=== PATIENT | male | born 1935 ===

== ENCOUNTER 2018-09-17 20:45 | Emergency (ER) | payer MEDICARE ==
--- NOTE | 2018-09-17 21:25 | C.PDOC ---
History Of Present Illness Patient is a 82 year old male who is sent into the ED by his PMD for high potassium after he was seen today for a routine check up. Patient denies any fever, chills, nausea, vomiting, abdominal pain, CP, or SOB. Time Seen by Provider: 09/17/18 21:24 Chief Complaint (Nursing): Abnormal Labs History Per: Patient History/Exam Limitations: no limitations Current Symptoms Are (Timing): Still Present Severity: None Reports Recently: Seen In ED, Treated By A Physician Recent travel outside of the [place]: No Additional History Per: Patient Past Medical History Reviewed: Historical Data, Nursing Documentation, Vital Signs Vital Signs: Last Vital Signs Temp 98.2 F 09/17/18 20:47 Pulse 71 09/17/18 20:47 Resp 20 09/17/18 20:47 BP 150/78 09/17/18 20:47 Pulse Ox 100 09/17/18 20:47 - Medical History PMH: HTN, Hypercholesterolemia Surgical History: No Surg Hx Family History: States: No Known Family Hx - Social History Hx Alcohol Use: No Hx Substance Use: No - Immunization History Hx Tetanus Toxoid Vaccination: No Hx Influenza Vaccination: No Hx Pneumococcal Vaccination: No Review Of Systems Constitutional: Negative for: Fever, Chills Cardiovascular: Negative for: Chest Pain Respiratory: Negative for: Shortness of Breath Gastrointestinal: Negative for: Nausea, Vomiting, Abdominal Pain Musculoskeletal: Negative for: Back Pain Skin: Negative for: Rash Neurological: Negative for: Weakness Psych: Negative for: Anxiety Physical Exam - Physical Exam Appears: Non-toxic, No Acute Distress Skin: Warm, Dry Head: Normacephalic Eye(s): bilateral: Normal Inspection Oral Mucosa: Moist Neck: Trachea Midline, Supple Chest: Symmetrical, Other (pacemaker on right side ) Cardiovascular: Rhythm Regular Respiratory: No Rales, No Rhonchi, No Wheezing Gastrointestinal/Abdominal: Soft, No Tenderness, No Distention Back: Normal Inspection Extremity: No Pedal Edema Extremity: Bilateral: Atraumatic, Normal Color And Temperature, Normal ROM Pulses: Left Dorsalis Pedis: Normal, Right Dorsalis Pedis: Normal Neurological/Psych: Oriented x3 Gait: Steady ED Course And Treatment - Laboratory Results Result Diagrams: 09/17/18 22:10 09/17/18 22:10 ECG: Interpreted By Me, Viewed By Me ECG Rhythm: Sinus Rhythm (60), R BBB, Nonspecific Changes (atrial paced) O2 Sat by Pulse Oximetry: 100 (on RA) Pulse Ox Interpretation: Normal - Radiology CXR: Interpreted by Me, Viewed By Me CXR Interpretation: Yes: Other (pacer right). No: Infiltrates, Fracture, Pnemothorax Progress Note: Plan: EKG. Labs. CXR Reevaluation Time: 23:03 Reassessment Condition: Improved Medical Decision Making Medical Decision Making: Upon provider reevaluation patient is feeling better, is medically stable, and requires no further treatment in the ED at this time. Patient will be discharged home . Counseling was provided and all questions were answered regarding diagnosis and need for follow up with dr chester trinh. There is agreement to discharge plan. Return if symptoms persist or worsen. Disposition Counseled Patient/Family Regarding: Studies Performed, Diagnosis, Need For Followup - Disposition Referrals: Christian Trinh MD [Medical Doctor] - Disposition: HOME/ ROUTINE Disposition Time: 21:25 Condition: FAIR Additional Instructions: Please return if symptoms recur Instructions: Hyperkalemia (DC) Forms: [employer] (Macedonian) Print Language: MOROCCAN - Clinical Impression Clinical Impression: Hyperkalemia - Scribe Statement The provider has reviewed the documentation as recorded by the Coltenibjeannine Wilson All medical record entries made by the Scribe were at my direction and personally dictated by me. I have reviewed the chart and agree that the record accurately reflects my personal performance of the history, physical exam, medical decision making, and the department course for this patient. I have also personally directed, reviewed, and agree with the discharge instructions and disposition.
[2018-09-17 22:22] LABS: BASO % 0.7 % (0.0-2.0); EOS # 1.5 K/uL (0.0-0.7); EOS % 23.9 % (0.0-4.0); HEMOGLOBIN 9.7 g/dL (12.0-18.0); LYMPH # 1.7 K/uL (1.0-4.3); MEAN CELL VOLUME 87.7 fL (80.0-94.0); MEAN CORPUSCULAR HEMOGLOBIN 27.9 pg (27.0-31.0); MEAN CORPUSCULAR HGB CONC 31.8 g/dL (33.0-37.0); MEAN PLATELET VOLUME 8.6 fL (7.2-11.7); MONO # 0.4 K/uL (0.0-0.8); MONO % 5.8 % (0.0-10.0); NEUT # 2.8 K/uL (1.8-7.0); NEUT % 43.6 % (50.0-75.0); NRBC % 0.1 % (0.0-2.0); PLATELET COUNT 195 K/uL (130-400); RBC 3.46 Mil/uL (4.40-5.90); RED CELL DISTRIBUTION WIDTH 15.7 % (11.5-14.5); WHITE BLOOD COUNT 6.4 K/uL (4.8-10.8)
[2018-09-17 22:35] LABS: ALB/GLOB RATIO 1.4 (1.0-2.1); ALBUMIN 4.7 g/dL (3.5-5.0); CALCIUM 9.4 mg/dl (8.6-10.4)
[2018-09-17 23:25] VITALS: BP 137/82; PULSE 89; RESP 17; TEMP 98.6; O2SAT 99
[2018-09-17 23:27] LABS: BANDS 1 % (0-2); BASOPHIL 1 % (0-2); EOSINOPHIL 27 % (0-4); LYMPHOCYTE 21 % (20-40); MONOCYTE 5 % (0-10); NEUTROPHIL 44 % (50-75); PLATELET ESTIMATE NORMAL (NORMAL); REACTIVE LYMPHOCYTES 1 % (0-0); TOTAL CELLS COUNTED 100
--- NOTE | 2018-09-18 09:27 | RAD ---
Date of service: 09/17/2018 HISTORY: SOB COMPARISON: None available. FINDINGS: LUNGS: No active pulmonary disease. PLEURA: No significant pleural effusion identified, no pneumothorax apparent. CARDIOVASCULAR: Calcific atherosclerotic changes are seen related to the thoracic aorta. 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 Normal cardiac size. No pulmonary vascular congestion. OSSEOUS STRUCTURES: No significant abnormalities. VISUALIZED UPPER ABDOMEN: Normal. OTHER FINDINGS: None. IMPRESSION: No acute cardiopulmonary disease. Permanent cardiac pacemaker identified as discussed above.
--- NOTE | 2018-09-19 16:07 | CARD ---
APPROVED REPORT Date of service: 09/17/2018 EKG Measurement Heart [id number] <Conclusion> Atrial-paced rhythm Right bundle branch block Abnormal ECG
== END 2018-09-17 23:25 | disposition home or self-care (01) ==
LOC: C.ER 20:45
DX: E87.5 Hyperkalemia (principal); E78.00 Pure hypercholesterolemia, unspecified; I10 Essential (primary) hypertension

== ENCOUNTER 2018-09-27 08:31 | Outpatient (CLI) | payer MEDICARE | END 2018-09-27 08:32 | disposition home or self-care (01) | LOC: C.LAB 08:31 ==